=== PATIENT | female | born 1975 | race Caucasian/White ===

== ENCOUNTER 2018-05-23 12:44 | Inpatient (IN) ==
[2018-05-23] MEDS ORDERED: Isovue-300 50 ML VIAL IVP ONE (13:00)
--- NOTE | 2018-05-23 13:00 | Anesthesia Evaluation PreOp ---
Date of Encounter: 05/23/18 Time of Encounter: 12:58 - Past History Cardiac History: Denies any Significant Hx Pulmonary History: Smoker, COPD [employer] History: Denies Any Significant HX Other Medical History: Renal (solitary kidney) Anesthesia History: No Prior Anesthetic Complications (dx laparoscopy) Test: Negative (05/16/18) Alcohol Use: none Drug use: cocaine, marijuana Medications and Allergies Omeprazole [PriLOSEC] 20 mg PO DAILY 01/14/17 [History] Albuterol Sulfate [Proair Hfa] 2 puff IH Q4H PRN 05/31/17 [History] Ibuprofen 800 mg PO TID PRN 05/31/17 [History] Linaclotide [Linzess] 145 mcg PO DAILY 05/31/17 [History] Buprenorphine HCl/Naloxone HCl [Buprenorphin-Naloxon 8-2 mg Sl] 1 tab SL BID 12/04/17 [History] Gabapentin [Neurontin] 400 mg PO BID 12/04/17 [History] Melatonin 5 mg PO HS PRN 12/04/17 [History] Paroxetine [Paxil] 30 mg PO DAILY 12/04/17 [History] Polyethylene Glycol 3350 [MiraLAX] 17 gm PO DAILY 12/04/17 [History] Prazosin HCl [Minipress] 2 mg PO HS 12/04/17 [History] Cephalexin [Keflex] 1,000 mg PO BID #20 capsule 12/27/17 [Rx] Allergy/AdvReac Type Severity Reaction Status Date / Time codeine Allergy Hives Verified 05/16/18 11:43 steroid pills Allergy Rash Uncoded 12/04/17 13:38 - Meds/Allergy Pre-op Review Medications Reviewed: Yes Allergies Reviewed: Yes Beta Blockers on Current Med List: No Anesthesia Results - Labs Laboratory Tests 05/16/18 05/16/18 05/16/18 11:50 11:50 11:50 WBC 6.6 Hgb 14.6 Hct 44.0 Plt Count 274 PT 10.9 INR 1.0 APTT 29.5 Potassium 4.0 Creatinine 0.82 Est GFR ( Amer) > 60 Est GFR (Non-Af Amer) > 60 Anesthesia Exam O2 Sat Height 1.65 m Height 1.65 m Weight 71.214 kg Weight 71.214 kg O2 Sat by Pulse Oximetry 94 Vital Signs Temp Pulse Resp BP Pulse Ox 97.6 F 92 18 123/84 94 05/23/18 12:59 05/23/18 12:59 05/23/18 12:59 05/23/18 12:59 05/23/18 12:59 Height: 1.65m Weight: 71kg NPO (# of Hours): >8 - HEENT Pupil (Motor): Pupils equal, EOMI Mallampati: II Teeth: Normal Oral Opening: Greater than 3 - [employer] LOC: Oriented [employer] Motor: Normal RUE, Normal LUE, Normal RLE, Normal LLE, Normal Face [employer] Sensory: Normal: RUE, LUE, RLE, LLE, Face - Cardiac Rhythm: Regular - Pulmonary Breath Sounds: bilateral Clear Respiratory Effort: Symmetrical Anesthesia Assess/Plan ASA Score: 3 Level of consciousness: Cooperative Anesthetic Plan: General Monitoring Plan: Standard Monitors Recovery Plan: PACU
[2018-05-23] MEDS ORDERED: Lidocaine -MPF 2% 2 ML VIAL ONE (13:05)
[2018-05-23] MEDS ORDERED: Lidocaine -MPF 4% 5 ML AMPUL ONE (13:05)
[2018-05-23] MEDS ORDERED: *HR* Rocuronium Bromide 50 MG/5 ML VIAL ONE (13:05)
[2018-05-23] MEDS ORDERED: *HR* FentaNYL (PF) 100 MCG/2 ML VIAL ONE (13:06)
[2018-05-23] MEDS ORDERED: *HR* Midazolam HCl 2 MG/2 ML VIAL ONE (13:06)
[2018-05-23] MEDS ORDERED: Acetaminophen IV 1,000 MG/100 ML INFUS..BTL ONE (13:07)
[2018-05-23] MEDS ORDERED: *HR* Propofol 200 MG/20 ML VIAL IVP ONE (13:07)
--- NOTE | 2018-05-23 13:08 | History & Physical Report ---
Date of Encounter: 05/23/18 Time of Encounter: 13:07 24 Hour HP Update - Instructions Instructions: If the History and Physical is less than 30 days old and was completed prior to A.M. admission and or procedure and has NOT been updated on calendar day of procedure please complete this update prior to performing procedure. - Update Patient reports changes in Medical Condition: No Changes in examination, assessment, or condition: No Changes in Medication: No Preop tests/diagnostics Reviewed: Yes Surgery Remains Indicated: Yes Consent for Planned Operative Procedure(s) Verified: Yes - Pre-Operative Checklist Preoperative Checklist Indicated: Yes Prophylactic Antibiotic Ordered: Yes Home Medications Include Beta Ellyn: No Beta Ellyn Taken Today (Day of Surgery): No Beta Ellyn Taken Yesterday (Day Prior to Surgery): No Is VTE Prophylaxis Indicated?: Yes
[2018-05-23] MEDS ORDERED: Neostigmine Methylsulfate 3 MG/3 ML SYRINGE ONE (13:11)
[2018-05-23] MEDS ORDERED: Ondansetron 4 MG/2 ML VIAL ONE (13:11)
[2018-05-23] MEDS ORDERED: Dexamethasone 4 MG/ML VIAL ONE (13:11)
--- NOTE | 2018-05-23 13:33 | History & Physical Report ---
Date of Encounter: 05/23/18 Time of Encounter: 13:32 24 Hour HP Update - Instructions Instructions: If the History and Physical is less than 30 days old and was completed prior to A.M. admission and or procedure and has NOT been updated on calendar day of procedure please complete this update prior to performing procedure. - Update Patient reports changes in Medical Condition: No Changes in examination, assessment, or condition: No Changes in Medication: No Preop tests/diagnostics Reviewed: Yes Surgery Remains Indicated: Yes Consent for Planned Operative Procedure(s) Verified: Yes - Pre-Operative Checklist Preoperative Checklist Indicated: Yes Prophylactic Antibiotic Ordered: Yes Home Medications Include Beta Ellyn: No Beta Ellyn Taken Today (Day of Surgery): No Beta Ellyn Taken Yesterday (Day Prior to Surgery): No Is VTE Prophylaxis Indicated?: Yes
[2018-05-23] MEDS ORDERED: Albuterol 2.5 MG/3 ML NEBULIZER IH ONE (13:35)
[2018-05-23] MEDS ORDERED: Ringers Solution, Lactated 1,000 ML IVC SCH ×2 (13:45→18:24)
[2018-05-23] MEDS ORDERED: CeFAZolin Syr 2,000MG/20 ML 2,000 MG/20 ML SYRINGE IVPB ONE (14:04)
[2018-05-23 14:56] LABS: Amphetamine Screen,Urine Positive ng/mL (Cutoff=1000); Barbiturate Screen,Urine Negative ng/mL (Cutoff=200); Benzodiazepines Screen,Urine Negative ng/mL (Cutoff=200); Cannabinoid Screen,Urine Positive ng/mL (Cutoff = 50); Cocaine Screen,Urine Positive ng/mL (Cutoff= 300); Opiate Screen,Urine Negative ng/mL (Cutoff=300); Phencyclidine Screen,Urine Negative ng/mL (Cutoff=25)
[2018-05-23] MEDS ORDERED: *HR* HYDROMORPHONE 2 MG/ML VIAL ONE (15:54)
--- NOTE | 2018-05-23 17:13 | Operative Note ---
Date of procedure: 05/23/18 Pre-op diagnosis: Solitary kidney Post-op diagnosis: same Procedure: Cystoscopy with placement of temporary ureteral stent left side Anesthesia: GETA Surgeon: Prabhakar Naik Was there an diversional therapist's assistant present: No Estimated blood loss (cc): 0 Specimen: None Condition: stable Disposition: PACU Procedure in Detail: PROCEDURE IN DETAIL: Patient was taken back to the operating room, positioned supine on the operating table. Anesthesia was applied without complication. They were moved into dorsal lithotomy. Careful attention was maintained to cushion all pressure points for patient's safety. They were prepped and draped in sterile fashion. Time-out was performed with the proper patient and procedure. A 21-Belarusian rigid cystoscope was inserted into the bladder without difficulty. Systematic examination of bladder revealed no abnormalities. The u reteral orifice left was cannulated using a 5-Belarusian ureteral Catheter and I was able to pass this without resistance. I then placed a 16-Belarusian Bowman catheter with the ureteral catheter attachment device. The ureteral catheter was secured to the catheter with clips and the Bowman was left to gravity drainage. The case was turned over to Dr. Mayorga
--- NOTE | 2018-05-23 17:23 | OB/GYN Procedure Note ---
OB-SOAP TENDER: Procedure - Diagnosis Date of procedure: 05/23/18 Pre-op diagnosis: Pelvic pain, pelvic adhesive disease, AUB Post-op diagnosis: same - Procedure Procedure: JUSTINA, left salpingectomy Surgeon: Juan Carlos Mayorga Was there an physical therapist assistant present: Yes Gamma Ray Operator: Jeri Gardiner Anesthesia Type: General Estimated blood loss (cc): 150 Fluids: crystalloid Procedure Complications: none Specimens collected: uterus, cervix and tube Disposition: floor Findings: Unicornuate uterus, normal left ovary and tube, congenitally absent right ovary and tube, severely adherent uterus to ant abd wall and bladder, omental adhesions to ant abd wall Narrative: The patient was prepped and draped in the usual sterile fashion after Dr Naik had placed the ureteral guide wire. An incision was made into the abdomen and carried down through the subcutaneous tissue and muscular fascia. The fascia was from the muscles. I bluntly dissected off the omental adhesions that were communicating with the anterior abdominal wall allowing me adequate visualization into the cavity. The above findings were noted. Once inside the abdominal cavity, the uterus was then identified and grasped on the fundus with a double-toothed tenaculum with upward traction. I dissected off the uterus from the anterior abdominal wall sharply and bluntly. The left round ligament was identified, dissected and ligated with the Ligasure device. This allowed me to create a bladder flap by both blunt and sharp dissection. The left fallopian tube and ovarian ligament were isolated through the broad ligament from the uterine body and ligated with the Ligasure divided as well. The uterine vessels on either side were ligated after the bladder was carefully dissected anteriorly. Posteriorly, the peritoneum was dissected down toward the uterosacral ligaments. The Ligasure device was used placed at each isthmic portion of the cervical body junction where the uterine arteries adjoined the uterus. These were clamped, ligated and divided. The remainder of the uterus was then removed by the [id number] technique using #0 Vicryl on all major pedicles. With removal of the uterus, the vaginal cuff was closed in the usual manner. (I had the OR nurses back fill the bladder and I was able to see the anatomical border of the bladder after I had closed the cuff. The cuff closure was far away from the bladder). Hemostasis was then inspected and secured throughout the entire area. Ester was placed over the cuff. The left ovary was left in situ. The lap sponges were then removed. The patient tolerated the operation nicely. There were no complications associated with this surgical procedure to this point. The sponge count was correct times 2 at this time. Having removed all instruments and packs, I then began closure of the abdomen. The fascia was closed with #0 Vicryl in a running continuous manner and the subcutaneous tissue was also closed with #3-0 Vicryl in interrupted manner. The skin was closed with #4-0 vicryl. The patient tolerated the operation nicely and was then taken to the Recovery Room in good condition.
[2018-05-23] MEDS ORDERED: Naloxone 0.4 MG/ML INJ IVP PRN (18:24)
[2018-05-23] MEDS ORDERED: Ibuprofen 600 MG TABLET PO PRN (18:24)
[2018-05-23] MEDS ORDERED: *HR* OxyCODONE/APAP 5/325 TABLET PO PRN (18:24)
[2018-05-23] MEDS ORDERED: Ondansetron 4 MG/2 ML VIAL IVP PRN (18:24)
--- NOTE | 2018-05-23 18:32 | Anesthesia Evaluation Post Op ---
Date of Encounter: 05/23/18 Time of Encounter: 18:30 - Vital Signs Vital Signs: Vital Signs/O2 Sat, Most Current Temp Pulse Resp BP Pulse Ox 97.2 F L 96 20 132/95 95 05/23/18 18:08 05/23/18 18:18 05/23/18 18:18 05/23/18 18:18 05/23/18 18:18 - Lungs Lungs: Clear Ascult./Percussion - Airway Airway: Non-obstructed - Cardiovascular Regular Rate - Mental Status Mental Status: Asleep with brisk response to light stimulation - Pain Pain Scale: 0 Pain Scale used: Numeric (1 - 10) - Nausea Vomiting Nausea Vomiting: Not Present - Hydration Hydration: NPO, Bowman catheter - Discharge PostOp Status: Transfer Patient to floor
[2018-05-23] MEDS ORDERED: *HR* OxyCODONE Immed Rel 5 MG TABLET PO PRN (21:15)
[2018-05-23] MEDS: *HR* Buprenorphine HCl 8 MG TAB.SUBL SL SCH (21:44)
[2018-05-23] MEDS: Gabapentin 400 MG CAPSULE PO SCH (21:45)
[2018-05-23] MEDS: Ketorolac 30 MG/ML VIAL IVP PRN (21:45)
[2018-05-24] MEDS: Ketorolac 30 MG/ML VIAL IVP PRN (05:57)
[2018-05-24 06:25] LABS: Basophils % 0.2 %; Hematocrit 41.5 % (35.3-44.9); Hemoglobin 13.9 g/dL (11.5-15.4); Immature Granulocytes % 0.5 % (0-4); Lymphocytes # 3.1 K/mcL (0.6-4.6); Lymphocytes % 20.9 %; Mean Corpuscular HGB Conc 33.5 g/dL (31.6-35.5); Mean Corpuscular Hemoglobin 30.7 pg (28.0-33.3); Mean Corpuscular Volume 91.6 fL (83.0-100.0); Mean Platelet Volume 9.4 fL (9.4-12.4); Monocytes % 6.7 %; Neutrophils # 10.6 K/mcL (1.6-8.9); Platelet Count 335 K/mcL (140-400); Red Blood Count 4.53 M/mcL (3.82-4.97); Red Cell Distribution Width 13.2 % (11.5-14.5); Segmented Neutrophils % 71.7 %
[2018-05-24] MEDS: *HR* Buprenorphine HCl 8 MG TAB.SUBL SL SCH (08:41)
[2018-05-24] MEDS: Gabapentin 400 MG CAPSULE PO SCH (08:41)
[2018-05-24] MEDS ORDERED: (Linaclotide [Linzess] 145 MCG) PO SCH (09:00)
--- NOTE | 2018-05-24 09:52 | Discharge Summary ---
Date of Encounter: 05/24/18 Time of Encounter: 09:43 - Discharge Diagnosis (1) Status post hysterectomy Priority: Primary Status: Acute Comments: 42 y/o s/p JUSTINA, POD#1, doing well, connolly is out with good urine, she's had breakfast, pain is under control, ok for discharge - Discharge Medications Home Medications: Omeprazole [PriLOSEC] 20 mg PO DAILY 01/14/17 [History] Albuterol Sulfate [Proair Hfa] 2 puff IH Q4H PRN 05/31/17 [History] Ibuprofen 800 mg PO TID PRN 05/31/17 [History] Linaclotide [Linzess] 145 mcg PO DAILY 05/31/17 [History] Buprenorphine HCl/Naloxone HCl [Buprenorphin-Naloxon 8-2 mg Sl] 1 tab SL BID 12/04/17 [History] Gabapentin [Neurontin] 400 mg PO BID 12/04/17 [History] Melatonin 5 mg PO HS PRN 12/04/17 [History] Paroxetine [Paxil] 30 mg PO DAILY 12/04/17 [History] Polyethylene Glycol 3350 [MiraLAX] 17 gm PO DAILY 12/04/17 [History] Prazosin HCl [Minipress] 2 mg PO HS 12/04/17 [History] Cephalexin [Keflex] 1,000 mg PO BID #20 capsule 12/27/17 [Rx] Buprenorphine HCl [Subutex] 8 mg SL BID 05/23/18 [History] Allergies/Adverse Reactions: Allergy/AdvReac Type Severity Reaction Status Date / Time codeine Allergy Hives Verified 05/16/18 11:43 steroid pills Allergy Rash Uncoded 12/04/17 13:38 Data Procedures and tests throughout hospitalization: Laboratory Tests 05/23/18 05/24/18 14:00 06:04 WBC 14.8 H RBC 4.53 Hgb 13.9 Hct 41.5 MCV 91.6 MCH 30.7 MCHC 33.5 RDW 13.2 Plt Count 335 MPV 9.4 Immature Gran % 0.5 Seg Neutrophils % 71.7 Lymphocytes % 20.9 Monocytes % 6.7 Eosinophils % 0.0 Basophils % 0.2 Neutrophils # 10.6 H Lymphocytes # 3.1 Monocytes # 1.0 Eosinophils # 0.0 Basophils # 0.0 Urine Opiates Screen Negative Ur Barbiturates Screen Negative Ur Phencyclidine Scrn Negative Ur Amphetamines Screen Positive H U Benzodiazepines Scrn Negative Urine Cocaine Screen Positive H U Marijuana (THC) Screen Positive H Ur Drug Screen Interp See Below Labs on day of discharge: Labs from last 24 hours 05/24/18 05/23/18 06:04 14:00 WBC 14.8 H RBC 4.53 Hgb 13.9 Hct 41.5 MCV 91.6 MCH 30.7 MCHC 33.5 RDW 13.2 Plt Count 335 MPV 9.4 Immature Gran % 0.5 Seg Neutrophils % 71.7 Lymphocytes % 20.9 Monocytes % 6.7 Eosinophils % 0.0 Basophils % 0.2 Neutrophils # 10.6 H Lymphocytes # 3.1 Monocytes # 1.0 Eosinophils # 0.0 Basophils # 0.0 Urine Opiates Screen Negative Ur Barbiturates Screen Negative Ur Phencyclidine Scrn Negative Ur Amphetamines Screen Positive H U Benzodiazepines Scrn Negative Urine Cocaine Screen Positive H U Marijuana (THC) Screen Positive H Ur Drug Screen Interp See Below Date of admission: 05/23/18 18:22 Primary care physician: Alena Lozada DO - Patient Status Disposition: Home, Self-Care Condition: Good Functional capacity at discharge: independent ambulation Overall status at discharge: patient is progressing back to baseline - Discharge Instructions Follow Up With: Alena Lozada DO [Primary Care Provider] - Hospital Course [employer] MANAGER Time Attestation: Total time spent providing and/or coordinating discharge services: Exam - Constitutional Vitals: Temp Pulse Resp BP Pulse Ox 98.5 F 94 20 95/60 92 05/24/18 08:10 05/24/18 08:10 05/24/18 08:10 05/24/18 08:10 05/24/18 08:10 General appearance IM: A&O X 3 - Respiratory Respiratory exam: Present: CTAB - Cardiovascular Cardiovascular exam IM: Present: RRR - GI/Abdominal GI/Abdominal exam IM: normal bowel sounds Incision: normal - VTE Documentation of Mechanical Device: Intermittent pneumatic compression device
[2018-05-24 11:27] VITALS: BP 118/78
== END 2018-05-24 12:24 | disposition home or self-care (01) | DRG 513 ==
LOC: SAMDAY 12:44 → 1NENUOBS 18:22
PROVIDERS: ADMIT Student in an Organized Health Care Education/Training Program; ATTEND Student in an Organized Health Care Education/Training Program